=== PATIENT | female | born 1985 | race Caucasian/White ===

== ENCOUNTER 2017-04-22 20:52 | Emergency (ER) | payer BC, OTHER ==
[~2017-04-22] VITALS: Ht 162.6 cm; Wt 79.4 kg
--- NOTE | ~2017-04-22 | EKG ---
[address] [address] ELECTROCARDIOGRAM REPORT Name: VIVIAN VERNON Room #: [facility] [id number] Admission: 04/22/17 Attend Phys: Discharge: 04/23/17 Date of : 81 Report #: [id number] THIS REPORT FOR: //name// [facility] ED Test Date: 2017-04-22 Test Time: 20:56:53 Pat Name: VIVIAN CARSON ANJELICAepartment: Room: Gender: F Chipper: [id number] : 1985 Requested By: Susie Grace Order Number: [id number] MD: Gopi Membreno Measurements Intervals [place] Rate: 65 P: 53 NJ: 207 QRS: 39 QRSD: 95 T: 52 QT: 409 QTc: 426 Interpretive Statements Sinus rhythm Borderline prolonged [place] interval ST elev, probable normal early repol pattern Compared to ECG 06/20/2015 12:54:12 ST (T wave) deviation now present Electronically Signed On 04-23-2017 13:58:25 CDT by Gopi Membreno [email or web address] <ELECTRONICALLY SIGNED> By: Gopi Membreno MD 04/23/17 1358 [id number] 55 Gopi Membreno MD /EPI
[~2017-04-22 20:52] MED LIST: AMITRIPTYLINE H50 M2; AMITRIPTYLINE H50 M3 PO; APAP500 PO; BUTALB-APAP-CA1 EACH PO; CARISOPRODOL 3350 MG PO; COLACE100 MG PO; FIORINAL CAPSUL1 CA1 PO; FLEXERIL PO; HYDROCODONE-AP1 EAC6 PO; HYDROCODONE-APA1 TA1 PO; IBUPROFEN 600600 M1 PO; IBUPROFEN 800800 M1 PO; IBUPROFEN 800800 MG PO; MAXALT MLT ODT10 M1 PO; MAXALT MLT ODT10 M2; NAPROSYN500 MG PO; NOHOMEMEDICATIONS; NORCO 5-325 TA1 EACH PO; NORFLEX100 MG PO; PEPCID40 MG PO; PHENTERMINE H37.5 M1 PO; PROVENTIL IH; RANITIDINE 150150 M1; RANITIDINE HCL75 MG PO; TIZANIDINE HCL4 MG PO; ZOFRAN ODT4 MG PO
[2017-04-22 21:59] LABS: ABSOLUTE NEUTROPHILS 5.5 thou/uL (1.4-8.2); BASOPHILS 0.4 % (0.0-2.0); EOSINOPHILS 1.6 % (0.0-3.0); HEMATOCRIT 35.9 % (37.0-47.0); LYMPHOCYTES 33.6 % (24.0-44.0); MCH 27.4 pg (26.0-34.0); MCHC 33.4 g/dL (28.0-37.0); MCV 82.1 fL (80.0-100.0); MONOCYTES 8.4 % (1.0-8.0); PLATELET COUNT 238 thou/uL (150-400); RBC 4.37 mil/uL (4.20-5.00); RDW 14.6 % (10.5-14.5); WBC 9.9 thou/uL (4.0-11.0)
[2017-04-22 22:01] LABS: MANUAL DIFF NO
[2017-04-22 22:09] LABS: ANION GAP 8 mmol/L (7-16); BUN 12 mg/dL (7-18); CALCIUM 9.2 mg/dL (8.5-10.1); CHLORIDE 104 mmol/L (98-107); CO2 26 mmol/L (21-32); CREATININE 0.9 mg/dL (0.6-1.0); GLUCOSE 93 mg/dL (74-106); POTASSIUM 3.5 mmol/L (3.5-5.1); SODIUM 138 mmol/L (136-145)
[2017-04-22 22:16] LABS: ALBUMIN 3.7 g/dL (3.4-5.0); ALKALINE PHOSPHATASE 58 U/L (46-116); SGOT 15 U/L (15-37); SGPT 24 U/L (30-65); TOTAL BILIRUBIN 0.2 mg/dL (<0.1-1.0); TOTAL PROTEIN 7.8 g/dL (6.4-8.2); TROPONIN-I < 0.04 ng/mL (<0.04-0.07)
[2017-04-23 00:56] VITALS: BP 95/53
== END 2017-04-23 00:58 | disposition home or self-care (01) ==
LOC: ER 20:52
PROVIDERS: Physician Assistant
DX: R00.2 Palpitations (principal); R07.89 Other chest pain; R06.00 Dyspnea, unspecified; G43.909 Migraine, unspecified, not intractable, without status migrainosus; K21.9 Gastro-esophageal reflux disease without esophagitis; Z98.890 Other specified postprocedural states; Z91.040 Latex allergy status

== ENCOUNTER 2017-07-07 20:41 | Emergency (ER) | payer BC, OTHER ==
[~2017-07-07] VITALS: Ht 160 cm; Wt 78.9 kg
[2017-07-07] MEDS ORDERED: NAPROSYN500 MG PO (22:08)
[2017-07-07 22:13] VITALS: BP 100/58
== END 2017-07-07 22:55 | disposition home or self-care (01) ==
LOC: ER 20:41
DX: S30.0XXA Contusion of lower back and pelvis, initial encounter (principal); K21.9 Gastro-esophageal reflux disease without esophagitis; G43.909 Migraine, unspecified, not intractable, without status migrainosus; Z98.890 Other specified postprocedural states; Z91.040 Latex allergy status; W18.09XA Striking against other object with subsequent fall, initial encounter; Y93.89 Activity, other specified; Y92.89 Other specified places as the place of occurrence of the external cause; Y99.8 Other external cause status

== ENCOUNTER 2017-12-17 23:21 | Emergency (ER) | payer BC, OTHER ==
[~2017-12-17] VITALS: Ht 162.6 cm; Wt 79.4 kg
[2017-12-17] MEDS ORDERED: ATIVAN1 MG PO (23:52)
[2017-12-17] MEDS ORDERED: PROTONIX40 M1 PO (23:53)
[2017-12-17] MEDS ORDERED: UNITHROID75 MCG PO (23:53)
[2017-12-17] MEDS ORDERED: LEXAPRO20 MG PO (23:54)
[2017-12-17] MEDS ORDERED: ESCITALOPRAM OX20 MG PO (23:55)
[2017-12-17] MEDS ORDERED: SYNTHROID75 MCG PO (23:55)
[2017-12-17] MEDS ORDERED: RESTORIL15 MG PO (23:55)
[2017-12-18] MEDS ORDERED: MOBIC15 MG PO (01:24)
[2017-12-18 01:44] VITALS: BP 154/86
== END 2017-12-18 01:44 | disposition home or self-care (01) ==
LOC: ER 23:21
DX: S50.12XA Contusion of left forearm, initial encounter (principal); K21.9 Gastro-esophageal reflux disease without esophagitis; G43.909 Migraine, unspecified, not intractable, without status migrainosus; Z91.040 Latex allergy status; Z90.49 Acquired absence of other specified parts of digestive tract; X58.XXXA Exposure to other specified factors, initial encounter; Y93.89 Activity, other specified; Y92.89 Other specified places as the place of occurrence of the external cause; Y99.8 Other external cause status

== ENCOUNTER 2018-01-25 19:27 | Emergency (ER) | payer BC, OTHER ==
[~2018-01-25] VITALS: Ht 162.6 cm; Wt 77.1 kg
[~2018-01-25 19:27] MED LIST changes: +ATIVAN1 MG PO; +ESCITALOPRAM OX20 MG PO; +LEXAPRO20 MG PO; +MOBIC15 MG PO; +PROTONIX40 M1 PO; +RESTORIL15 MG PO; +SYNTHROID75 MCG PO; +UNITHROID75 MCG PO
[2018-01-25] MEDS ORDERED: ULTRAM 50MG TAB50 MG PO (22:47)
[2018-01-25] MEDS ORDERED: IBUPROFEN 600600 M1 PO (22:47)
[2018-01-25] MEDS ORDERED: TIZANIDINE HCL4 MG PO (22:47)
[2018-01-25 22:59] LABS: URINE BILIRUBIN NEGATIVE (Negative); URINE BLOOD NEGATIVE (Negative); URINE CLARITY CLEAR; URINE COLOR YELLOW; URINE GLUCOSE-RANDOM* NEGATIVE (Negative); URINE KETONES NEGATIVE (Negative); URINE LEUKOCYTES NEGATIVE (Negative); URINE NITRITE NEGATIVE (Negative); URINE PROTEIN (DIPSTICK) NEGATIVE (Negative); URINE UROBILINOGEN 0.2 E.U./dl (0.2-1.0)
[2018-01-25 23:22] VITALS: BP 113/68
== END 2018-01-25 23:23 | disposition home or self-care (01) ==
LOC: ER 19:27
PROVIDERS: Nurse Practitioner
DX: M54.5 Low back pain (principal); K21.9 Gastro-esophageal reflux disease without esophagitis; G43.909 Migraine, unspecified, not intractable, without status migrainosus; Z90.49 Acquired absence of other specified parts of digestive tract; Z91.040 Latex allergy status

== ENCOUNTER 2018-04-04 16:08 | Emergency (ER) | payer BC, OTHER ==
[~2018-04-04] VITALS: Ht 162.6 cm; Wt 79.4 kg
[~2018-04-04 16:08] MED LIST changes: +ULTRAM 50MG TAB50 MG PO
[2018-04-04 16:13] VITALS: BP 102/66
[2018-04-04] MEDS ORDERED: PREDNISONE 10 M10 MG PO (16:53)
[2018-04-04] MEDS ORDERED: NORFLEX100 MG PO (16:53)
== END 2018-04-04 17:02 | disposition home or self-care (01) ==
LOC: ER 16:08
DX: S29.012A Strain of muscle and tendon of back wall of thorax, initial encounter (principal); K21.9 Gastro-esophageal reflux disease without esophagitis; G43.909 Migraine, unspecified, not intractable, without status migrainosus; Z90.49 Acquired absence of other specified parts of digestive tract; Z91.040 Latex allergy status; X58.XXXA Exposure to other specified factors, initial encounter; Y93.89 Activity, other specified; Y92.89 Other specified places as the place of occurrence of the external cause; Y99.8 Other external cause status